=== PATIENT | male | born 1955 | race African-American/Black ===

== ENCOUNTER 2020-04-20 15:10 | Inpatient (IN) | payer OTHER ==
[~2020-04-20] VITALS: Ht 30.5 cm; Wt 78.8 kg
[~2020-04-20 15:10] MED LIST: ASPI-543 PO; ATOR10TA52 PO; CHLO25TA22 PO; DULO20CA PO; LISI-648 PO; METF-370 PO
[2020-04-20] MEDS ORDERED: LABETALOL HCL 5 MG/ML 4ML SYRINGE IV ONE (15:15)
[2020-04-20 16:43] LABS: Basophils # (auto) 0 10 ^3/uL (0-0.2); Basophils % (auto) 1.4 % (0.0-2.0); Eosinophils # (auto) 0 10 ^3/uL (0-0.8); Eosinophils % (auto) 0.6 % (0.0-7.0); Hemoglobin 13.2 g/dL (13.5-17.5); Lymphocytes # (auto) 1.7 10 ^3/uL (0.4-5.4); Mean Corpuscular Hemoglobin 27.7 pg (28.0-32.0); Mean Corpuscular Hgb Conc. 31.4 g/dL (32.0-36.0); Mean Corpuscular Volume 88.3 fL (80.0-100.0); Monocytes # (auto) 0.4 10 ^3/uL (0-1.3); Monocytes % (auto) 11.8 % (0.0-12.0); Neutrophils # (auto) 1.2 10 ^3/uL (1.6-8.6); Neutrophils % (auto) 36.2 % (37.0-80.0); Nucleated Red Blood Cells % 0.2 %; Platelet Count (auto) 183 10^3/uL (140-450); Red Blood Cells 4.75 10^6/uL (4.5-5.90); Red Cell Distribution Width 16.6 % (11.8-14.3); White Blood Cell 3.4 10^3/uL (4.4-10.8)
[2020-04-20 17:06] LABS: Albumin 3.7 g/dL (3.4-5.0); Anion Gap 4 (5-15); Blood Urea Nitrogen 13 mg/dL (7-18); Calcium 8.9 mg/dL (8.5-10.1); Carbon Dioxide 26 mmol/L (21-32); Chloride 106 mmol/L (98-107); Glucose 69 mg/dL (74-106); Potassium 4.1 mmol/L (3.5-5.1); Sodium 136 mmol/L (136-145)
[2020-04-20 17:10] LABS: Alanine Aminotransferase 26 U/L (16-61); Alkaline Phosphatase 99 U/L (45-117); Aspartate Aminotransferase 42 U/L (15-37); BUN/Creatinine Ratio 9.9; Bilirubin, Total 0.5 mg/dL (0.2-1.0); GFR African American 71 mL/min; GFR Non-African American 59 mL/min; Total Protein 8.5 g/dL (6.4-8.2)
[2020-04-20 17:17] LABS: Urine Bacteria NONE SEEN /hpf (None Seen); Urine Blood Negative /uL (Negative); Urine Specific Gravity 1.016 (1.001-1.035); Urine WBC <1 /hpf (0 - 3)
[2020-04-20] MEDS ORDERED: METOPROLOL SUCCINATE XL 50 MG TAB PO ONE (18:15)
[2020-04-20] MEDS ORDERED: amLODIPine BESYLATE 5 MG TAB PO ONE (18:15)
[2020-04-20] MEDS ORDERED: ASPirin 81 mg TAB PO ONE (18:15)
[2020-04-20] MEDS ORDERED: DULoxetine HCL 30 MG CAP PO ONE (18:15)
[2020-04-20] MEDS ORDERED: ATORVASTATIN 20 MG TAB PO ONE (18:15)
[2020-04-20] MEDS: metFORMIN HYDROCHLORIDE 500 MG TAB PO SCH (18:38)
--- NOTE | 2020-04-20 21:50 | NUR ---
Telemetry admit from ER ANDREI BUTTS admitted to Telemetry unit after SBAR received. Patient oriented to Min garcia RN, unit, room, bed, and unit policies regarding patient care and visiting hours. Patient now on continuous telemetry monitoring, tele box # [id number] and telemetry reading on arrival to unit is nsr. Patient placed on bedside oxygen, weighed by bedscale and encouraged to call if they need something. All questions and concerns addressed, patient verbalized understanding.
[2020-04-20 22:00] VITALS: BP 190/98
[2020-04-20] MEDS: LABETALOL HCL 5 MG/ML 4ML SYRINGE IV PRN ×2 (22:23→23:50)
[2020-04-20 23:18] VITALS: BP 190/98
--- NOTE | 2020-04-20 23:36 | NUR ---
patient non compliant with nursing care. refused to complete admission, belonging list, and nursing care. information obtained from previous admission. endorsed to primary rn of several admission questions needs to be completed, belonging list, and covid testing for inmates for protocol.
[2020-04-21] VITALS (7 sets, daily range): BP systolic 138–193; BP diastolic 97–111
--- NOTE | 2020-04-21 04:30 | NUR ---
PT REFUSES [employer] TESTING.
[2020-04-21] MEDS: LABETALOL HCL 5 MG/ML 4ML SYRINGE IV PRN ×4 (07:01→21:55)
[2020-04-21] MEDS: metFORMIN HYDROCHLORIDE 500 MG TAB PO SCH ×2 (07:03→18:10)
--- NOTE | 2020-04-21 08:05 | NUR ---
Patient resting quietly in bed with no complaint of pain. Medication given for high blood pressure (178/98). Emptied 300mls of clear, yellow urine from urinal. Patient stable with guards at bedside.
--- NOTE | 2020-04-21 08:20 | NUR ---
COVID test was done. Patient stable at this time.
--- NOTE | 2020-04-21 11:40 | NUR ---
Patient resting quietly in bed with no distress noted; guards at bedside. Patient stable. Latest bp 138/99.
--- NOTE | 2020-04-21 14:15 | NUR ---
Patient resting quietly in bed with no complaint of pain at this time. Denies any pain. Patient stable with guards at bedside.
--- NOTE | 2020-04-21 14:40 | NUR ---
Checked blood sugar: 147 mg/dl. Patient stable at this time.
--- NOTE | 2020-04-21 18:15 | NUR ---
Scheduled po medication given per order. Emptied 300mls of clear, yellow urine from urinal. Patient stable throughout shift. Guards at bedside.
--- NOTE | 2020-04-21 19:30 | NUR ---
Opening Shift Note Assumed care of patient, awake and alert. No S/S of distress/SOB or pain. Instructed on POC and to call for assist PRN. Bed in lowest locked position, call light within reach, side rails up x2, guards at bedside. Will continue to monitor for changes Q1hr and PRN.
--- NOTE | 2020-04-21 23:00 | NUR ---
Called/paged Dr. Morales called regarding patient BP remaining high, 190/111 after giving PRN and HR low at 53, requesting new PRN BP med which will not affect HR. Waiting for call back. Continue care.
--- NOTE | 2020-04-21 23:10 | NUR ---
returned call Dr. Morales returned call, updated on patient status and reason for call, new orders received and read back for verification. Continue care.
[2020-04-21] MEDS ORDERED: cloNIDine HCL 0.1 MG TAB PO PRN (23:15)
[2020-04-21] MEDS ORDERED: LOSARTAN POTASSIUM 25 MG TAB PO ONE (23:15)
--- NOTE | 2020-04-21 23:16 | NUR ---
BP Med Attempted to give BP med per MD's request. Upon attempting to give medication, patient became very angry and began to yell. Patient yelling "I'm not going to keep taking medication the whole night! It's already midnight, I don't need you guys to come in here every hour to check on my blood pressure!" Informed patient that blood pressure remained high and needed to be corrected. Patient informed of the risks if BP remained high, and if he refused medication. Patient proceeded to yell stating, "I don't care, I don't need you guys to keep bothering me!" Will notify MD of patient's BP med refusal. Guards remain at bedside.
--- NOTE | 2020-04-21 23:19 | NUR ---
Called/paged Dr. Morales called regarding patient refusing BP med. Waiting for call back. Continue care.
--- NOTE | 2020-04-21 23:20 | NUR ---
returned call Dr. Morales returned call, updated on patient status and reason for call. Per MD, attempt to give medication once more, if patient continues to refuse, okay to discharge patient.
--- NOTE | 2020-04-21 23:23 | NUR ---
Spoke with Patient Attempted to give patient medication again. Patient continues to refuse and yelled "I don't care I don't want it, just discharge me!"
--- NOTE | 2020-04-21 23:53 | NUR ---
Disharge Discharge instructions given as ordered. IV removed with catheter intact, pressure dressing applied. Guards at bedside. Telemetry unit returned to ICU.
[2020-04-22] MEDS ORDERED: LOSARTAN POTASSIUM 25 MG TAB PO SCH (10:00)
== END 2020-04-21 23:50 | DRG 305 ==
LOC: ER 15:10 → EDBD 15:10 → EDUNIT# 15:10 → EEVIPCON 15:10 → TELE 18:06 → EDBD 18:06 → TELE-CENTR 21:54
PROVIDERS: ADMIT Internal Medicine; ATTEND Internal Medicine
DX: I16.0 Hypertensive urgency (principal); E11.9 Type 2 diabetes mellitus without complications; I10 Essential (primary) hypertension; F12.90 Cannabis use, unspecified, uncomplicated; Z20.828 Contact with and (suspected) exposure to other viral communicable diseases; Z91.19 Patient's noncompliance with other medical treatment and regimen
CPT/HCPCS: 36415; 71045; 80053; 81001; 82962; 84443; 84484; 85025; 87426; 96374; 99291; G0378; J3490

== ENCOUNTER 2021-04-05 16:42 | Inpatient (IN) | payer OTHER ==
[~2021-04-05] VITALS: Ht 180.3 cm; Wt 83.5 kg
[~2021-04-05 16:42] MED LIST changes: +CHLO25TA2 PO; -CHLO25TA22 PO; -LISI-648 PO; +LISI-716 PO
[2021-04-05] MEDS ORDERED: amLODIPine BESYLATE 5 MG TAB PO ONE (17:45)
[2021-04-05 19:12] LABS: Hemoglobin 13.2 g/dL (13.5-17.5); Mean Corpuscular Hemoglobin 27.6 pg (28.0-32.0); Mean Corpuscular Hgb Conc. 32.3 g/dL (32.0-36.0); Mean Corpuscular Volume 85.5 fL (80.0-100.0); Red Cell Distribution Width 16.8 % (11.8-14.3)
[2021-04-05 19:30] LABS: Band Neutrophils % (manual) 0; Basophils % (manual) 0 (0.0-2.0); Blast Cells 0; Calcium 9.3 mg/dL (8.5-10.1); Metamyelocytes % 0; Myelocytes % 0; Potassium 4.5 mmol/L (3.5-5.1); Promyelocytes % 0; Reactive Lymphocytes 0
[2021-04-05 19:34] LABS: Albumin 3.7 g/dL (3.4-5.0); Magnesium 2.4 mg/dL (1.6-2.6)
[2021-04-05 19:39] LABS: Bilirubin, Total 0.5 mg/dL (0.2-1.0); Total Protein 8.8 g/dL (6.4-8.2)
[2021-04-05 20:06] LABS: Eosinophils % (manual) 1 (0-7); Lymphocytes % (manual) 58 (10.0-50.0); Monocytes % (manual) 10 (0-12)
[2021-04-05] MEDS ORDERED: cloNIDine HCL 0.1 MG TAB PO PRN (20:15)
[2021-04-05] MEDS ORDERED: METOPROLOL SUCCINATE XL 50 MG TAB PO ONE (20:15)
[2021-04-06 01:40] VITALS: BP 132/90
[2021-04-06 04:30] VITALS: BP 105/69
[2021-04-06 06:42] LABS: Calcium 8.6 mg/dL (8.5-10.1); Hematocrit 35.8 % (41.0-53.0); Hemoglobin 11.8 g/dL (13.5-17.5); Mean Corpuscular Hemoglobin 28.2 pg (28.0-32.0); Mean Corpuscular Hgb Conc. 32.9 g/dL (32.0-36.0); Mean Corpuscular Volume 85.7 fL (80.0-100.0); Potassium 3.9 mmol/L (3.5-5.1); Red Blood Cells 4.17 10^6/uL (4.5-5.90); Red Cell Distribution Width 16.8 % (11.8-14.3); White Blood Cell 3.4 10^3/uL (4.4-10.8)
[2021-04-06] MEDS: metFORMIN HYDROCHLORIDE 500 MG TAB PO SCH ×2 (06:44→18:19)
[2021-04-06 06:45] LABS: BUN/Creatinine Ratio 11.5
[2021-04-06 06:56] LABS: Basophils % (manual) 0 (0.0-2.0); Blast Cells 0; Metamyelocytes % 0; Myelocytes % 0; Promyelocytes % 0; Reactive Lymphocytes 0
[2021-04-06 08:00] VITALS: BP 115/64
[2021-04-06 08:40] LABS: Band Neutrophils % (manual) 4; Eosinophils % (manual) 2 (0-7); Lymphocytes % (manual) 46 (10.0-50.0); Monocytes % (manual) 18 (0-12)
[2021-04-06 09:00] VITALS: BP 115/64
[2021-04-06] MEDS: LISINOPRIL 10 MG TAB PO SCH (09:41)
[2021-04-06] MEDS: DULoxetine HCL 30 MG CAP PO SCH (09:41)
[2021-04-06] MEDS: CHLORTHALIDONE 25 MG PO SCH (10:00)
[2021-04-06] MEDS ORDERED: METOPROLOL SUCCINATE XL 50 MG TAB PO SCH (10:00)
[2021-04-06] MEDS: HYDROcodone-ACET 10/325MG TAB PO PRN (10:06)
[2021-04-06 12:51] VITALS: BP 118/71
[2021-04-06 20:00] VITALS: BP_SYST 14; BP_SYST 140; BP_DIAS 73
[2021-04-06] MEDS ORDERED: ATORVASTATIN 20 MG TAB PO SCH (22:00)
[2021-04-07 05:00] VITALS: BP 133/71
[2021-04-07] MEDS: metFORMIN HYDROCHLORIDE 500 MG TAB PO SCH ×2 (06:32→18:09)
[2021-04-07 09:11] VITALS: BP 153/90
[2021-04-07] MEDS: CHLORTHALIDONE 25 MG PO SCH (10:00)
[2021-04-07] MEDS: LISINOPRIL 10 MG TAB PO SCH (10:51)
[2021-04-07] MEDS: DULoxetine HCL 30 MG CAP PO SCH (10:53)
[2021-04-07 13:02] VITALS: BP 151/80
[2021-04-07 16:00] VITALS: BP 158/86
[2021-04-07] MEDS: HYDROcodone-ACET 10/325MG TAB PO PRN (18:10)
[2021-04-07 18:55] VITALS: BP 158/86
== END 2021-04-07 20:30 | DRG 305 ==
LOC: ER 16:42 → EEVIPCON 16:42 → EDBD 16:42 → TELE 20:06 → TELE-CENTR 23:52
PROVIDERS: ADMIT Internal Medicine; ATTEND Internal Medicine
DX: I16.0 Hypertensive urgency (principal); G45.9 Transient cerebral ischemic attack, unspecified; Z20.822 Contact with and (suspected) exposure to COVID-19; E11.9 Type 2 diabetes mellitus without complications; Z86.73 Personal history of transient ischemic attack (TIA), and cerebral infarction without residual deficits; Z91.19 Patient's noncompliance with other medical treatment and regimen
CPT/HCPCS: 36415; 70450; 71045; 80048; 80053; 83735; 84443; 84484; 85007; 85027; 87081; 87426; 93005; G0378